=== PATIENT | female | born 1975 | race Caucasian/White ===

== ENCOUNTER 2020-01-14 16:36 | Outpatient (REF) | payer MEDICAID, SELFPAY | END 2020-01-14 16:56 | LOC: NCHCN 16:36 | PROVIDERS: PCP Nurse Practitioner Family; Visit Provider Nurse Practitioner Family | DX: F41.9 Anxiety disorder, unspecified (principal); K58.9 Irritable bowel syndrome, unspecified; Z00.00 Encounter for general adult medical examination without abnormal findings | CPT/HCPCS: 84443 ==

== ENCOUNTER 2020-11-05 15:44 | Outpatient (REF) | payer MEDICAID, SELFPAY ==
[2020-11-05 15:58] LABS: ESR 5 mm/hr (0-20)
[2020-11-05 16:36] LABS: Ferritin 63 ng/mL (8-252); Vitamin B12 760 pg/mL (193-986)
== END 2020-11-05 15:45 | disposition home or self-care (01) ==
LOC: NCHCN 15:44
PROVIDERS: PCP Nurse Practitioner Family; Visit Provider Nurse Practitioner Community Health
DX: R10.9 Unspecified abdominal pain (principal)
CPT/HCPCS: 85652; 82607; 82728

== ENCOUNTER 2021-06-15 21:41 | Outpatient (REF) | payer MEDICAID, SELFPAY ==
[2021-06-15 21:19] LABS: Abs Immature Grans 0.02 10^3/uL (0.0-0.06); Absolute Basophil Count 0.03 10^3/uL (0.0-0.2); Absolute Eosinophil Count 0.13 10^3/uL (0.0-0.7); Absolute Lymphocyte Count 2.21 10^3/uL (1.2-3.4); Absolute Monocyte Count 0.59 10^3/uL (0.1-0.8); Absolute Neutrophil Count 5.36 10^3/uL (1.2-6.7); Basophils % 0.4; Eosinophils % 1.6; HCT 40.3 % (36.0-46.0); HGB 13.5 g/dL (11.2-15.7); Immature Grans % 0.2; Lymphocytes % 26.5; MCH 31.2 pg (27.0-33.0); MCHC 33.5 % (32.0-36.0); MCV 93.1 fL (80-95); MPV 11.1 fL (8.0-11.0); Monocytes % 7.1; Neutrophils % 64.2; Nucleated RBC 0 %; Platelet Count 318 10^3/uL (130-400); RBC 4.33 10^6/uL (3.93-5.22); RDW 12.8 % (11.7-14.6); WBC 8.34 10^3/uL (4.4-10.8)
[2021-06-16 18:02] LABS: FSH 3.7 mIU/mL (See Note)
== END 2021-06-15 21:42 | disposition home or self-care (01) ==
LOC: NCHCN 21:41
PROVIDERS: PCP Nurse Practitioner Family; Visit Provider Internal Medicine
DX: N92.1 Excessive and frequent menstruation with irregular cycle (principal)
CPT/HCPCS: 83001; 84443; 85025

== ENCOUNTER 2022-02-09 16:32 | Outpatient (REF) | payer MEDICAID, SELFPAY ==
[2022-02-09 22:55] LABS: Hemoglobin A1C 5.6 % (<5.7)
[2022-02-09 23:14] LABS: ALT 20 U/L (14-59); AST 20 U/L (15-37); Albumin 3.5 g/dL (3.4-5.0); Alkaline Phosphatase 61 U/L (46-116); Anion Gap 7.4 mmol/L (3-11); BUN 10 mg/dL (7-18); Bilirubin, Total 0.2 mg/dL (0.2-1.0); CO2 26.6 mmol/L (21.0-32.0); CREATININE 0.7 mg/dL (0.55-1.02); Calcium 9.2 mg/dL (8.5-10.1); Calculated LDL 91 mg/dL (<100); Chloride 104 mmol/L (98-107); Cholesterol 172 mg/dL (<200); Estimated GFR 106.62 (mL/min/1.73m2); Glucose 66 mg/dL (74-106); HDL Cholesterol 60 mg/dL (40-60); Potassium 4.1 mmol/L (3.5-5.1); Sodium 138 mmol/L (136-145); Total Protein 7.2 g/dL (6.4-8.2); Triglyceride 109 mg/dL (<150)
== END 2022-02-09 16:33 | disposition home or self-care (01) ==
LOC: NCHCN 16:32
PROVIDERS: PCP Nurse Practitioner Family; Visit Provider Nurse Practitioner Family
DX: E66.8 Other obesity (principal)
CPT/HCPCS: 80053; 80061; 83036

== ENCOUNTER 2022-07-16 12:34 | Outpatient (REF) | payer MEDICAID, SELFPAY ==
[2022-07-16 22:00] LABS: TSH (W/Ref FT4) 3.05 uIU/mL (0.36-3.74)
== END 2022-07-16 12:35 | disposition home or self-care (01) ==
LOC: NCHCN 12:34
PROVIDERS: PCP Nurse Practitioner Family; Visit Provider Registered Nurse
DX: R53.83 Other fatigue (principal)
CPT/HCPCS: 84443

== ENCOUNTER 2023-04-12 10:50 | Outpatient (REF) | payer MEDICAID, SELFPAY ==
[2023-04-12 15:00] LABS: Abs Immature Grans 0.01 10^3/uL (0.0-0.06); Absolute Basophil Count 0.02 10^3/uL (0.0-0.2); Absolute Lymphocyte Count 2.38 10^3/uL (1.2-3.4); Absolute Monocyte Count 0.48 10^3/uL (0.1-0.8); Absolute Neutrophil Count 3.66 10^3/uL (1.2-6.7); Basophils % 0.3; HCT 42.8 % (36.0-46.0); HGB 14.6 g/dL (11.2-15.7); Immature Grans % 0.1; Lymphocytes % 35.3; MCH 30.9 pg (27.0-33.0); MCHC 34.1 % (32.0-36.0); MCV 91 fL (80-95); MPV 11.3 fL (8.0-11.0); Monocytes % 7.1; Neutrophils % 54.2; Platelet Count 327 10^3/uL (130-400); RBC 4.73 10^6/uL (3.93-5.22); RDW 12.3 % (11.7-14.6); RDW-SD 40.9 fL; WBC 6.75 10^3/uL (4.4-10.8)
[2023-04-12 15:35] LABS: ALT 27 U/L (14-59); AST 19 U/L (15-37); Albumin 3.4 g/dL (3.4-5.0); Alkaline Phosphatase 53 U/L (46-116); Anion Gap 7.9 mmol/L (3-11); BUN 9 mg/dL (7-18); Bilirubin, Total 0.4 mg/dL (0.2-1.0); CO2 27.1 mmol/L (21.0-32.0); CREATININE 0.9 mg/dL (0.55-1.02); Calcium 8.7 mg/dL (8.5-10.1); Chloride 103 mmol/L (98-107); Estimated GFR 78.37 (mL/min/1.73m2); FREE T4 0.97 ng/dL (0.76-1.46); Glucose 97 mg/dL (74-106); Potassium 3.8 mmol/L (3.5-5.1); Sodium 138 mmol/L (136-145); TSH 3.72 uIU/mL (0.36-3.74); Total Protein 7.1 g/dL (6.4-8.2)
== END 2023-04-12 10:51 | disposition home or self-care (01) ==
LOC: NCHCN 10:50
PROVIDERS: PCP Nurse Practitioner Family; Visit Provider Physician Assistant
DX: R53.83 Other fatigue (principal)
CPT/HCPCS: 80053; 84439; 84443; 85025

== ENCOUNTER 2023-05-24 11:24 | Outpatient (REF) | payer MEDICAID, SELFPAY ==
[2023-05-24 15:32] LABS: Abs Immature Grans 0.02 10^3/uL (0.0-0.06); Absolute Basophil Count 0.03 10^3/uL (0.0-0.2); Absolute Eosinophil Count 0.22 10^3/uL (0.0-0.7); Absolute Monocyte Count 0.55 10^3/uL (0.1-0.8); Absolute Neutrophil Count 5.41 10^3/uL (1.2-6.7); Basophils % 0.4; Eosinophils % 2.8; HCT 41.5 % (36.0-46.0); HGB 14.1 g/dL (11.2-15.7); Immature Grans % 0.3; Lymphocytes % 20.4; MCH 30.7 pg (27.0-33.0); MCV 90 fL (80-95); MPV 11.5 fL (8.0-11.0); Neutrophils % 69.1; Platelet Count 332 10^3/uL (130-400); RBC 4.59 10^6/uL (3.93-5.22); RDW 12.7 % (11.7-14.6); RDW-SD 41.9 fL; WBC 7.83 10^3/uL (4.4-10.8)
[2023-05-24 15:54] LABS: ALT 25 U/L (14-59); AST 19 U/L (15-37); Albumin 3.5 g/dL (3.4-5.0); Alkaline Phosphatase 45 U/L (46-116); Anion Gap 9.3 mmol/L (3-11); BUN 7 mg/dL (7-18); Bilirubin, Total 0.4 mg/dL (0.2-1.0); CO2 26.7 mmol/L (21.0-32.0); CREATININE 0.8 mg/dL (0.55-1.02); Chloride 104 mmol/L (98-107); Estimated GFR 90.27 (mL/min/1.73m2); Glucose 94 mg/dL (74-106); Lipase 34 U/L (16-77); Potassium 4.1 mmol/L (3.5-5.1); Sodium 140 mmol/L (136-145); Total Protein 7.2 g/dL (6.4-8.2)
== END 2023-05-24 11:25 | disposition home or self-care (01) ==
LOC: NCHCN 11:24
PROVIDERS: PCP Nurse Practitioner Family; Visit Provider Physician Assistant
DX: R10.11 Right upper quadrant pain (principal); R10.12 Left upper quadrant pain
CPT/HCPCS: 80053; 83690; 85025

== ENCOUNTER 2024-10-18 10:27 | Outpatient (REF) | payer MEDICAID, SELFPAY ==
[2024-10-18 15:37] LABS: ALT 53 U/L (14-59); AST 31 U/L (15-37); Alkaline Phosphatase 78 U/L (46-116); Anion Gap 7.8 mmol/L (3-11); Bilirubin, Total 0.4 mg/dL (0.2-1.0); CO2 27.2 mmol/L (21.0-32.0); Calcium 8.7 mg/dL (8.5-10.1); Chloride 103 mmol/L (98-107); Cholesterol 161 mg/dL (<200); Estimated GFR 104.65 (mL/min/1.73m2); Glucose 93 mg/dL (74-106); Potassium 3.9 mmol/L (3.5-5.1); Sodium 138 mmol/L (136-145); Total Protein 6.8 g/dL (6.4-8.2); Triglyceride 71 mg/dL (<150)
[2024-10-18 16:01] LABS: Hemoglobin A1C 5.2 % (<5.7)
[2024-10-18 16:08] LABS: Albumin 3.5 g/dL (3.4-5.0); BUN 9 mg/dL (7-18); Calculated LDL 84 mg/dL (<100); HDL Cholesterol 63 mg/dL (>or=50)
== END 2024-10-18 10:28 | disposition home or self-care (01) ==
LOC: NCHCN 10:27
PROVIDERS: PCP Nurse Practitioner Family; Visit Provider Nurse Practitioner Family
DX: Z00.00 Encounter for general adult medical examination without abnormal findings (principal); Z13.220 Encounter for screening for lipoid disorders; I10 Essential (primary) hypertension
CPT/HCPCS: 80053; 80061; 83036